=== PATIENT | female | born 1995 | race Caucasian/White ===

== ENCOUNTER 2016-08-19 19:07 | Inpatient (IN) | payer OTHER ==
[~2016-08-19] VITALS: Ht 160 cm; Wt 77.1 kg
[2016-08-19 21:04] LABS: HEMOGLOBIN 10.7 gm/dl (12.3-15.3); RED BLOOD COUNT 3.67 M/UL (4.00-5.10); WHITE BLOOD COUNT 16.8 K/UL (4.5-11.0)
[2016-08-21 04:51] LABS: HEMOGLOBIN 9.3 gm/dl (12.3-15.3)
[2016-08-22] MEDS ORDERED: COLACE 100MG C100 MG PO (12:27)
[2016-08-22] MEDS ORDERED: PRENATABS RX T1 EACH PO (12:27)
[2016-08-22] MEDS ORDERED: IBUPROFEN600 MG PO (12:28)
== END 2016-08-22 16:09 | disposition home or self-care (01) | DRG 766 ==
LOC: GENOP 19:07 → OB 20:39
PROVIDERS: ADMIT Obstetrics & Gynecology
PROC: 10D00Z1 Extraction of Products of Conception, Low, Open Approach (ICD-10-PCS; principal; 2016-08-20 08:09)
PROC: 3E0234Z Introduction of Serum, Toxoid and Vaccine into Muscle, Percutaneous Approach (ICD-10-PCS; 2016-08-22)
DX: O48.0 Post-term pregnancy (principal); Z3A.40 40 weeks gestation of pregnancy; Z37.0 Single live birth; O76 Abnormality in fetal heart rate and rhythm complicating labor and delivery; Z23 Encounter for immunization
CPT/HCPCS: 36415; 82800; 85014; 85018; 85025; 90715; C9113; J0690; J2274; J2300; J2405; J2590; J2765; J3430; J7050; J7120